=== PATIENT | male | born 1955 | race Caucasian/White ===

== ENCOUNTER 2022-04-22 14:25 | Day surgery (SDCO) | payer MEDICARE, OTHER ==
[~2022-04-22] VITALS: Ht 182.9 cm; Wt 76.8 kg
[2022-04-22 14:59] LABS: BASOPHIL 0.4 % (0-2); EOSINOPHIL 1.3 % (0-7); HCT 52.9 % (42.0-52.0); HGB 18.3 g/dl (13.2-18.0); LYMPHOCYTE 18.5 % (15-48); MCH 32.3 pg (25.0-31.0); MCHC 34.6 g/dL (32.0-36.0); MCV 93.5 fL (78.0-100.0); MONOCYTE 7.3 % (0-12); MPV 9.4 fL (6.0-9.5); NEUTROPHIL 71.6 % (41-80); NRBC 0; PLT 147 K/uL (150-400); RBC 5.66 M/uL (4.70-6.00); RDW 14.6 % (11.5-14.0); WBC 12.8 K/uL (4.0-10.5)
[2022-04-22 15:16] LABS: INR 1.12 (0.9-1.2); PROTHROMBIN TIME 14.1 SECONDS (11.9-13.9)
[2022-04-22 15:17] LABS: PTT 32.5 SECONDS (24.9-34.6)
[2022-04-22 15:18] LABS: D-DIMER 0.38 ug/mLFEU (0.00-0.41)
[2022-04-22 15:35] LABS: ALBUMIN 3.9 g/dL (3.4-5.0); BILIRUBIN - TOTAL 1.3 mg/dL (0.2-1.0); BUN/CREAT RATIO (CALC) 17.5 RATIO; CREATININE 1.03 mg/dL (0.67-1.17); GLOBULIN (CALCULATION) 4.2 g/dL; POTASSIUM 4.1 mmol/L (3.5-5.1); TOTAL PROTEIN 8.1 g/dL (6.4-8.2)
[2022-04-22 17:17] LABS: C-REACTIVE PROTEIN 1.9 mg/dL (<=0.90)
[2022-04-22] MEDS ORDERED: ZESTRIL5 MG PO (22:43)
[2022-04-22] MEDS ORDERED: TRELEGY ELLIPT1 EACH INH (22:43)
[2022-04-22] MEDS ORDERED: JARDIANCE10 MG PO (22:44)
[2022-04-22] MEDS ORDERED: GLUCOTROL5 MG PO (22:46)
[2022-04-22] MEDS ORDERED: ELAVIL50 MG PO (22:48)
[2022-04-22] MEDS ORDERED: ISOSORBIDE MONO60 MG PO (22:50)
[2022-04-22] MEDS ORDERED: PLAVIX75 MG PO (22:50)
[2022-04-22] MEDS ORDERED: ASPIRIN EC81 MG PO (22:51)
[2022-04-22] MEDS ORDERED: CRESTOR10 MG PO (22:51)
[2022-04-22] MEDS ORDERED: METFORMIN HCL500 MG PO (22:53)
[2022-04-22] MEDS ORDERED: VASCEPA1 GM PO (22:54)
[2022-04-22] MEDS ORDERED: METOPROLOL TART25 MG PO (22:55)
[2022-04-22] MEDS ORDERED: SYNTHROID50 MCG PO (22:56)
[2022-04-23 06:57] LABS: HCT 51.7 % (42.0-52.0); HGB 17.7 g/dl (13.2-18.0); MCH 32.4 pg (25.0-31.0); MCHC 34.2 g/dL (32.0-36.0); MCV 94.5 fL (78.0-100.0); MPV 9.8 fL (6.0-9.5); RBC 5.47 M/uL (4.70-6.00); RDW 14.2 % (11.5-14.0); WBC 6.7 K/uL (4.0-10.5)
[2022-04-23 07:13] LABS: ALBUMIN 3.6 g/dL (3.4-5.0); BILIRUBIN - DIRECT 0.2 mg/dL (0.00-0.20); BILIRUBIN - TOTAL 0.8 mg/dL (0.2-1.0); CREATININE 1.05 mg/dL (0.67-1.17); GLOBULIN (CALCULATION) 4.2 g/dL; POTASSIUM 4.4 mmol/L (3.5-5.1); TOTAL PROTEIN 7.8 g/dL (6.4-8.2)
[2022-04-23] MEDS ORDERED: DUONEB 2.5-0.5M1 AMP NEB (10:34)
[2022-04-23] MEDS ORDERED: PREDNISONE 20MG20 MG PO (10:34)
--- NOTE | 2022-04-23 16:16 | NUR ---
[facility] FAXED OXYGEN ORDER. WILL DELIVER PORTABLE TANK
== END 2022-04-23 14:40 | disposition home or self-care (01) ==
LOC: FER 14:25 → FMS 16:15
PROVIDERS: Emergency Medicine; ADMIT Family Medicine
DX: J44.1 Chronic obstructive pulmonary disease with (acute) exacerbation (principal); J96.01 Acute respiratory failure with hypoxia; R63.4 Abnormal weight loss; E80.7 Disorder of bilirubin metabolism, unspecified; E11.9 Type 2 diabetes mellitus without complications; I25.10 Atherosclerotic heart disease of native coronary artery without angina pectoris; I10 Essential (primary) hypertension; E78.5 Hyperlipidemia, unspecified; E03.9 Hypothyroidism, unspecified; J45.909 Unspecified asthma, uncomplicated; Z79.01 Long term (current) use of anticoagulants; Z79.82 Long term (current) use of aspirin; Z87.891 Personal history of nicotine dependence; Z20.822 Contact with and (suspected) exposure to COVID-19
CPT/HCPCS: 36415; 36600; 71045; 71250; 80048; 80053; 80076; 82550; 82803; 83036; 83605; 83880; 84145; 84443; 84484; 85025; 85379; 85610; 85730; 86140; 87040; 93005; 94010; 94640; 94760; 97162; 97165; G0378; J0456; J0696; J2930; J7050; J7512; U0002